=== PATIENT | male | born 1995 ===

== ENCOUNTER 2018-11-06 06:39 | Emergency (ER) | payer OTHER ==
[2018-11-06 07:42] VITALS: BMI 25.1
--- NOTE | 2018-11-06 07:57 | ED PDOC ---
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 Patient also reports that his tongue is yellow and complains of a rash inside his mouth. He states that the diarrhea is not watery but soft, with his last episode yesterday, and admits that he is concerned about having HIV/AIDS. Patient states that he was last sexually active 1 month ago and prefers female sexual partners. He denies any fevers, abdominal pain, or chest pain. Patient offers no other medical complaints at this time. PMD: none provided Past Medical History Reviewed: Historical Data, Nursing Documentation, Vital Signs Vital Signs: Last Vital Signs Temp 98.5 F 11/06/18 06:47 Pulse 79 11/06/18 06:47 Resp 18 11/06/18 06:47 BP 136/80 11/06/18 06:47 Pulse Ox 98 11/06/18 06:47 - Medical History PMH: No Chronic Diseases - Surgical History Surgical History: No Surg Hx - Family History Family History: States: Unknown Family Hx - Social History Current smoker - smoking cessation education provided: No Alcohol: None Drugs: Denies - Allergies Allergies/Adverse Reactions: Allergies Allergy/AdvReac Type Severity Reaction Status Date / Time No Known Allergies Allergy Verified 11/06/18 07:02 Review of Systems ROS Statement: Except As Marked, All Systems Reviewed And Found Negative Constitutional: Negative for: Fever ENT: Positive for: Throat Pain Cardiovascular: Negative for: Chest Pain Gastrointestinal: Positive for: Diarrhea. Negative for: Abdominal Pain Physical Exam - Reviewed Nursing Documentation Reviewed: Yes Vital Signs Reviewed: Yes - Physical Exam Appears: Positive for: Non-toxic, No Acute Distress Head Exam: Positive for: ATRAUMATIC, NORMAL INSPECTION, NORMOCEPHALIC Skin: Positive for: Normal Color, Warm, DRY Eye Exam: Positive for: EOMI, Normal appearance, PERRL ENT: Positive for: Normal ENT Inspection, Pharynx Is (clear ). Negative for: Pharyngeal Erythema, Tonsillar Exudate, Tonsillar Swelling Neck: Positive for: Normal, Painless ROM, Supple Cardiovascular/Chest: Positive for: Regular Rate, Rhythm. Negative for: Murmur Respiratory: Positive for: Normal Breath Sounds. Negative for: Respiratory Distress Gastrointestinal/Abdominal: Positive for: Normal Exam, Soft. Negative for: Tenderness Back: Positive for: Normal Inspection Extremity: Positive for: Normal ROM. Negative for: Deformity, Swelling Neurological/Psych: Positive for: Awake, Alert, Normal Tone, Oriented (x3). Negative for: Motor/Sensory Deficits - ECG O2 Sat by Pulse Oximetry: 98 (RA) Pulse Ox Interpretation: Normal Medical Decision Making Medical Decision Making: Time: 7:56 Plan: --Rapid HIV Screen Scribe Attestation: Documented by Caryn Ortega, acting as a scribe for Naina Parra MD. Provider Scribe Attestation: All medical record entries made by the Scribe were at my direction and personally dictated by me. I have reviewed the chart and agree that the record accurately reflects my personal performance of the history, physical exam, medical decision making, and the department course for this patient. I have also personally directed, reviewed, and agree with the discharge instructions and disposition. Disposition - Clinical Impression Clinical Impression: History of oral lesions - Disposition Referrals: [facility] [Outside] Disposition Time: 09:21 Condition: GOOD Instructions: Mouth Sores Forms: [employer] ([place]er) Print Language: [place]EN[place]
[2018-11-06 09:43] VITALS: BP 130/66; PULSE 78; RESP 16; TEMP 98.4
[2018-11-06 09:45] VITALS: O2SAT 99
== END 2018-11-06 09:35 | disposition home or self-care (01) ==
LOC: H.ER 06:39
DX: K13.70 Unspecified lesions of oral mucosa (principal)